=== PATIENT | female | born 1950 | race Two or more races ===

== ENCOUNTER 2016-09-19 03:03 | Inpatient (IN) | payer MEDICARE, OTHER ==
[~2016-09-19] VITALS: Ht 154.9 cm; Wt 59.0 kg
[2016-09-19 05:00] VITALS: BP 138/98
--- NOTE | 2016-09-19 05:20 | NUR ---
GASATERIA ATTENDANT NOTE PATIENT IS A DIRECT ADMIT FROM [facility]. PATIENT DENIES ANY PAIN AT THIS TIME, BUT SAYS THAT HER HEART FEELS LIKE ITS RACING. ATTACHED HER TO TELE MONITOR PROMPTLY. READING IS UNCONTROLLED A.FIB WITH A HR OF 150 AT THIS TIME. PLACED PATIENT ON OXYGEN @2LPM. HEAD OF BED ELEVATED. PATIENT ABLE TO VERBALIZE NEEDS. ORIENTED TO ROOM AND TO UNIT. ALL BELONGINGS CHECKED AND ACCOUNTED FOR. SKIN IS CLEAN, DRY AND INTACT. NO BREAKDOWN OR BRUISING NOTED. BED LOCKED AND IN LOWEST POSITION, SIDE RAILS UP, CALL LIGHT WITHIN REACH. MD NOTIFIED. WAITING FOR CALL BACK.
--- NOTE | 2016-09-19 05:45 | NUR ---
SURVEILLANCE SPECIALIST NOTE HR 130. DR. VELASQUEZ CALLED WITH NEW ORDER FOR ATIVAN 1MG IVP Q4H PRN. RECEIVED ADMISSION ORDERS WELL. ORDERS CARRIED OUT. WILL CONTINUE TO MONITOR.
[2016-09-19] MEDS ORDERED: IV NS 0.9% 1,000 ML IV PRN (05:46)
[2016-09-19] MEDS ORDERED: HYDROCODONE/APAP 5/325MG 1 EACH TABLET PO PRN (06:00)
[2016-09-19] MEDS ORDERED: LORAZEPAM INJ 2 MG/ML VIAL IV PRN (06:00)
[2016-09-19] MEDS ORDERED: ENOXAPARIN SODIUM 40 MG/0.4 ML DISP.SYRIN SQ SCH ×2 (06:00→09:00)
[2016-09-19] MEDS ORDERED: ONDANSETRON HCL/PF 4 MG/2 ML VIAL IVP PRN (06:00)
[2016-09-19] MEDS ORDERED: MORPHINE SULFATE INJ 2 MG/ML DISP.SYRIN IV PRN (06:00)
[2016-09-19] MEDS ORDERED: MAGNESIUM HYDROXIDE 30 ML UDC PO PRN (06:00)
[2016-09-19] MEDS ORDERED: DILTIAZEM HCL 50 MG IV IV PRN (06:00)
[2016-09-19] MEDS ORDERED: MAG HYDROX/AL HYDROX/SIMETH 30 ML UDC PO PRN (06:00)
[2016-09-19] MEDS ORDERED: ZOLPIDEM TARTRATE 5 MG TABLET PO PRN (06:00)
[2016-09-19] MEDS ORDERED: Z GUARD REMEDY 2 OZ OINT TP PRN (06:00)
[2016-09-19] MEDS ORDERED: ACETAMINOPHEN 325 MG TABLET PO PRN (06:00)
[2016-09-19] MEDS ORDERED: LORAZEPAM INJ 2 MG/ML VIAL ONE (06:01)
[2016-09-19 06:04] VITALS: BP 138/98
--- NOTE | 2016-09-19 06:19 | NUR ---
DECORATING AND ASSEMBLY SUPERVISOR NOTE PATIENT RESTING COMFORTABLY. HR 120 AT THIS TIME. WILL ENDORSE TO DAY SHIFT FOR ALLEN.
[2016-09-19] MEDS ORDERED: IV SET PRIMARY PUMP SET 1 EA INFUS.SET MC ONE (06:23)
[2016-09-19] MEDS ORDERED: IV NS 0.9% 1,000 ML ONE (06:23)
[2016-09-19 07:00] VITALS: BP 129/79
[2016-09-19] MEDS ORDERED: CALC1CAP21 PO (07:28)
[2016-09-19] MEDS ORDERED: BENA40TA2 PO (07:28)
--- NOTE | 2016-09-19 07:36 | NUR ---
DIE MAINTENANCE TECHNICIAN OPENING NOTE PATIENT IS ALERT AND ORIENTEDx4. STATELESS SPEAKING. NO PAIN AT THIS TIME. NO SOB OR DISTRESS NOTED. CALL LIGHT WITHIN REACH. SAFETY MEASURES IMPLEMENTED. CARDIAC DIET. IV INTACT AND PATENT NO REDNESS OR SWELLING NOTED. IV FLUIDS RUNNING AT 75ML/HR. LABS PENDING THIS MORNING. ABLE TO COMMUNICATE NEEDS. WILL CONTINUE TO MONITOR
[2016-09-19] MEDS: PANTOPRAZOLE 40 MG TABLET.DR PO SCH (08:55)
[2016-09-19] MEDS ORDERED: AMIODARONE 900 MG in IV D5W 500 ML IV PRN (10:30)
[2016-09-19] MEDS ORDERED: AMIODARONE 150 MG in IV D5W 100 ML IV ONE (10:30)
[2016-09-19] MEDS: DRONEDARONE HYDROCHLORIDE 400 MG TABLET PO SCH ×2 (10:30→17:19)
[2016-09-19 10:40] LABS: BASOPHILS % (AUTO) 0.3 % (0.0-2.0); EOSINOPHILS # (AUTO) 0.1 /CMM (0.0-0.7); HEMATOCRIT 38 % (33-45); HEMOGLOBIN 12.9 g/dL (11.5-14.8); LYMPHOCYTES # (AUTO) 1.6 /CMM (0.8-4.8); LYMPHOCYTES % (AUTO) 24.6 % (20.0-44.0); MEAN CORPUSCULAR HEMOGLOBIN 31 PG (26.0-33.0); MEAN CORPUSCULAR HGB CONC 34 g/dl (31.0-36.0); MEAN CORPUSCULAR VOLUME 92 fL (82-100); MONOCYTES # (AUTO) 0.4 /CMM (0.1-1.30); MONOCYTES % (AUTO) 6.9 % (2.0-12.0); NEUTROPHILS # (AUTO) 4.3 /CMM (1.8-8.9); NEUTROPHILS % (AUTO) 67.2 % (43.0-81.0); PLATELET COUNT (AUTO) 243 /CMM (150-450); RDW COEFFICIENT OF VARIATION 13.5 (11.5-15.0); RED BLOOD CELL COUNT(AUTO) 4.13 MIL/uL (4.0-5.2); WHITE BLOOD COUNT (AUTO) 6.4 K/uL (4.3-11.0)
[2016-09-19 10:52] LABS: CALCIUM, SERUM 9.1 mg/dL (8.5-10.1); CREATININE 0.8 mg/dL (0.6-1.3); POTASSIUM 4.2 mmol/L (3.5-5.1)
[2016-09-19 10:58] LABS: ALBUMIN 3.7 g/dL (3.4-5.0); BILIRUBIN,TOTAL 0.6 mg/dL (0.2-1.0); MAGNESIUM 2.4 mg/dL (1.8-2.4); PHOSPHORUS 3.8 mg/dL (2.5-4.9); TOTAL PROTEIN, SERUM 7.5 g/dL (6.4-8.2)
[2016-09-19 11:09] LABS: THYROID STIMULATING HORMONE 0.084 uIU/mL (0.358-3.74)
[2016-09-19] MEDS ORDERED: DILTIAZEM HCL 25 MG IV IV PRN (11:30)
[2016-09-19] MEDS: ATORVASTATIN 10 MG TABLET PO SCH (12:11)
[2016-09-19] MEDS: ENOXAPARIN SODIUM 60 MG/0.6 ML DISP.SYRIN SQ SCH ×2 (12:14→20:08)
[2016-09-19] MEDS ORDERED: AMIODARONE HCL 200 MG TABLET PO SCH (13:00)
[2016-09-19 16:00] VITALS: BP 133/84
--- NOTE | 2016-09-19 18:29 | NUR ---
SOFTWARE DEVELOPMENT SPECIALIST CLOSING NOTE PATIENT IS ALERT AND ORIENTED x4. NO SOB OR DISTRESS NOTED. CALL LIGHT WITHIN REACH AT ALL TIMES. SAFETY MEASURES IMPLEMENTED. ABLE TO COMMUNICATE NEEDS. IV INTACT AND PATENT NO REDNESS OR SWELLING NOTED. ALL DUE MEDICATIONS GIVEN ORDERED. NPO AT MIDNIGHT FOR LEXISCAN IN AM 09/20 AT 088. CONSENT OBTAINED. WILL ENDORSE TO ENVIRONMENTAL ANALYST NURSE
[2016-09-19 20:00] VITALS: BP 138/64
[2016-09-20] VITALS: BP 114/59
[2016-09-20 04:00] VITALS: BP 138/63
[2016-09-20 06:32] LABS: BASOPHILS % (AUTO) 0.5 % (0.0-2.0); EOSINOPHILS # (AUTO) 0.3 /CMM (0.0-0.7); EOSINOPHILS % (AUTO) 5.2 % (0.0-6.0); HEMATOCRIT 37 % (33-45); HEMOGLOBIN 12.7 g/dL (11.5-14.8); LYMPHOCYTES # (AUTO) 2.1 /CMM (0.8-4.8); LYMPHOCYTES % (AUTO) 40.8 % (20.0-44.0); MEAN CORPUSCULAR HEMOGLOBIN 32 PG (26.0-33.0); MEAN CORPUSCULAR HGB CONC 34 g/dl (31.0-36.0); MEAN CORPUSCULAR VOLUME 93 fL (82-100); MONOCYTES # (AUTO) 0.4 /CMM (0.1-1.30); MONOCYTES % (AUTO) 7.5 % (2.0-12.0); NEUTROPHILS # (AUTO) 2.4 /CMM (1.8-8.9); PLATELET COUNT (AUTO) 232 /CMM (150-450); RDW COEFFICIENT OF VARIATION 13.9 (11.5-15.0); WHITE BLOOD COUNT (AUTO) 5.2 K/uL (4.3-11.0)
--- NOTE | 2016-09-20 06:34 | NUR ---
ETL ANALYST NOTES AWAKE & RESPONSIVE. NOT IN ANY DISTRESS. NO SOB NOTED. DENIES ANY PAIN OR DISCOMFORT AT THIS TIME. ON TELE SB @ 54 WITH IVF INFUSING WELL. MONITORED ACCORDINGLY. CALL LIGHT WITHIN REACH. BED IN LOWEST POSITION. SR UP X 2 FOR SAFETY. WILL ENDORSE TO NEXT SHIFT.
[2016-09-20 07:14] LABS: ALBUMIN 3.3 g/dL (3.4-5.0); BILIRUBIN,TOTAL 0.5 mg/dL (0.2-1.0); CALCIUM, SERUM 8.6 mg/dL (8.5-10.1); CREATININE 0.8 mg/dL (0.6-1.3); MAGNESIUM 2.3 mg/dL (1.8-2.4); PHOSPHORUS 4.2 mg/dL (2.5-4.9); POTASSIUM 4.5 mmol/L (3.5-5.1); TROPONIN I 0.082 ng/mL (0.00-0.056)
--- NOTE | 2016-09-20 07:20 | NUR ---
COMMERCIAL CLEANER OPEN NOTES RECEIVED REPORT FROM PRODUCT DEVELOPMENT CONSULTANT NURSE. PATIENT IS IN BED, ALERT AND ORIENTED TO NAME, PLACE AND TIME. NO SIGNS AND SYMPTOMS OF DISTRESS. DENIED PAIN. CHINESE SPEAKER BUT KNOW ESTONIAN. SINUS BRADYCARDIA ON THE MONITOR 57 BPM. WILL CONTINUE TO MONITOR ANS ASSESS PATIENT CONDITION THROUGH OUT MY SHIFT
[2016-09-20 07:22] VITALS: BP 144/63
[2016-09-20 07:24] LABS: THYROID STIMULATING HORMONE 0.047 uIU/mL (0.358-3.74)
--- NOTE | 2016-09-20 08:25 | NUR ---
PATIENT IS OFF THE FLOOR FOR STRESS TEST
[2016-09-20] MEDS ORDERED: REGADENOSON 0.4 MG/5 ML DISP.SYRIN IVP ONE (08:30)
[2016-09-20] MEDS: DRONEDARONE HYDROCHLORIDE 400 MG TABLET PO SCH (09:00)
[2016-09-20] MEDS ORDERED: BENAZEPRIL HCL 20 MG TABLET PO SCH (09:00)
[2016-09-20] MEDS: ATORVASTATIN 10 MG TABLET PO SCH (09:00)
[2016-09-20] MEDS ORDERED: CALCIUM CARB 600MG /VIT D 1 EACH TABLET PO SCH (09:00)
--- NOTE | 2016-09-20 09:00 | NUR ---
LIPITOR NOT ADMINISTERED. PM MEDS. WILL NOTIFY
--- NOTE | 2016-09-20 09:25 | NUR ---
PATIENT IS BACK TO FLOOR. WILL RESUME ALL MORNING MEDS
--- NOTE | 2016-09-20 09:35 | NUR ---
ORDERED BREAKFAST TO PATIENT. WILL RESUME HER AM MEDS AFTER MEAL.
--- NOTE | 2016-09-20 10:21 | NUR ---
ACCOUNT SUPPORT ANALYST NOTES DC TELEMETRY PER DR. AMBROCIO.
--- NOTE | 2016-09-20 10:34 | NUR ---
PATIENT HAS NOT YET ABLE TO EAT. WILL HOLD MEDS AFTER STRESS TEST SECOND STEP
--- NOTE | 2016-09-20 10:45 | NUR ---
PATIENT IS OFF THE FLOOR FOR SECOND PART STRESS TEST
--- NOTE | 2016-09-20 11:30 | NUR ---
PATIENT IS BACK FROM STRESS TEST 2ND PART
--- NOTE | 2016-09-20 11:39 | NUR ---
PATIENT REFUSED ALL AM MEDS RIGHT NOW AND WOULD LIKE TO GET THEM WITH LUNCH
[2016-09-20] MEDS: PANTOPRAZOLE 40 MG TABLET.DR PO SCH (12:03)
[2016-09-20 12:04] VITALS: BP 134/80
[2016-09-20] MEDS: ENOXAPARIN SODIUM 60 MG/0.6 ML DISP.SYRIN SQ SCH (12:08)
[2016-09-20] MEDS ORDERED: DRON400T2 PO (12:11)
[2016-09-20] MEDS ORDERED: ATOR10TA PO (12:11)
[2016-09-20] MEDS ORDERED: APIX5TAB PO (12:11)
--- NOTE | 2016-09-20 13:00 | NUR ---
MEDS ADMINISTERED WITH LUNCH
--- NOTE | 2016-09-20 14:25 | NUR ---
TURNTABLE ENGINEER NOTES PATIENT DISCHARGE INSTRUCTION RECEIVED AND CARRIED OUT. ALL DISCHARGE INSTRUCTION EXPLAINED TO PATIENT AND PATIENT VERBALIZED UNDERSTANDING. NEW PRESCRIPTION GAVE TO PATIENT. APPOINTMENT WITH PCP SCHEDULED ON BEHALF OF THE PATIENT FOR SEPTEMBER 26 AT 1720. IV SITE REMOVED. ID BAND REMOVED. NO SIGNS AND SYMPTOMS OF DISTRESS. DENIED PAIN. JOSE G TURNERLES, FAMILY MEMBER, PICKED UP PATIENT FROM MAIN LOBBY VIA A PRIVATE CAR. I, TRUNG RADFORD RN, ESCORTED PATIENT TO MAIN LOBBY VIA A WHEELCHAIR.
== END 2016-09-20 14:05 | disposition home or self-care (01) | DRG 281 ==
LOC: TELE 04:40 → MED 09-20 08:54
PROVIDERS: ADMIT Internal Medicine; ATTEND Internal Medicine
DX: I48.91 Unspecified atrial fibrillation (principal); I21.4 Non-ST elevation (NSTEMI) myocardial infarction; D68.59 Other primary thrombophilia; M81.0 Age-related osteoporosis without current pathological fracture; I10 Essential (primary) hypertension; E11.9 Type 2 diabetes mellitus without complications
CPT/HCPCS: 36415; 76536-TC; 80053-TC; 80061-TC; 82306; 83735-TC; 84100-TC; 84439-TC; 84443-TC; 84484-TC; 85025-TC; 87081-TC; 93307-TC; A9502; J0282; J1650; J2060; J2785; J3490; J7030; J7060; Z7610